=== PATIENT | female | born 1935 | race Caucasian/White ===

== ENCOUNTER 2022-05-02 10:24 | Inpatient (IN) | payer MEDICARE, OTHER ==
[2022-05-02 11:12] LABS: #Basophils 0.1 10x3/uL (0.0-0.2); #Eosinphils 0.1 10x3/uL (0.0-0.5); #Monocytes 1.3 10x3/uL (0.0-1.1); #Neutrophils 14.9 10x3/uL (1.5-8.4); %Basophils 0.3 % (0.0-2.0); %Eosinophils 0.3 % (0.0-6.0); %Monocytes 7.3 % (0.0-10.0); %Neutrophils 84.6 % (40.0-75.0); Hemoglobin 11.5 g/dL (12.0-15.5); Mean Corpuscular HGB CONC 33.7 g/dL (32.0-36.0); Mean Corpuscular Hemoglobin 31.5 pg (27.0-33.0); Mean Corpuscular Volume 93.4 fl (81.6-98.3); Mean Platelet Volume 10.7 fl (7.4-10.4); Platelet Count 169 10x3/uL (150-450); RBC Distribution Width 12.8 % (11.5-14.5); Red Blood Cell (RBC) Count 3.65 10x6/uL (3.90-5.03); White Blood Cell (WBC) Count 17.7 10x3/uL (3.5-10.5)
[2022-05-02 11:17] LABS: INR-International Normal Ratio 1.1; PTT 23.8 sec (22.0-33.0)
[2022-05-02 11:21] LABS: ALT (SGPT) 13 U/L (8-55); AST (SGOT) 34 U/L (5-34); Albumin 3.7 g/dL (3.4-4.8); Alkaline Phosphatase 56 U/L (40-110); Anion Gap 21 mmol/L (10-20); BUN (Urea Nitrogen) 44 mg/dL (9.8-20.1); Bilirubin, Total 0.9 mg/dL (0.2-1.2); CK (CPK) 647 U/L (29-168); Calc. Creatinine Clearance 0 mL/min (70-130); Calcium 9.5 mg/dL (7.8-10.44); Carbon Dioxide 19 mmol/L (23-31); Chloride 105 mmol/L (98-107); Estimated GFR 31; Globulin 2.9 g/dL (2.4-3.5); Glucose 372 mg/dL (83-110); Potassium 5.8 mmol/L (3.5-5.1); Protein, Total 6.6 g/dL (5.8-8.1); Sodium 139 mmol/L (136-145)
[2022-05-02 11:48] LABS: CKMB 31.5 ng/mL (0-6.6)
[2022-05-02] MEDS ORDERED: Aspirin Chewable 81 MG TAB ONE (12:25)
[2022-05-02] MEDS ORDERED: cefTRIAXone\\ROCEPHIN 1 GM VIAL ONE (12:25)
[2022-05-02] MEDS ORDERED: Calcium Gluc 4.6 MEQ/10 ML (100 MG/ML) ONE (13:01)
[2022-05-02 14:08] LABS: Potassium 4.9 mmol/L (3.5-5.1)
[2022-05-02 14:10] LABS: Lactic Acid 2.3 mmol/L (0.5-2.2)
[2022-05-02 14:26] LABS: Troponin I 2.041 ng/mL (< 0.028)
[2022-05-02 15:11] VITALS: BMI 23.0
[2022-05-02] MEDS ORDERED: Ondansetron PF 4 MG/2 ML Vial IVP PRN (15:15)
[2022-05-02] MEDS ORDERED: Acetaminophen 650 MG Suppository PR PRN (15:15)
[2022-05-02] MEDS ORDERED: Ondansetron ODT 4 MG TAB PO PRN (15:15)
[2022-05-02] MEDS ORDERED: Magnesium 2 GM/50 ML(in water) 2 GM in Premix Bag 1 BAG IVPB SCH (15:30)
[2022-05-02] MEDS ORDERED: Vancomycin DOSE BY LEVEL IVPB PRN (15:30)
[2022-05-02] MEDS ORDERED: Vancomycin HCl 1 GM in Sodium Chloride 0.9% 250 ML 250 ML IVPB SCH (15:45)
[2022-05-02 16:12] LABS: Magnesium 1.6 mg/dL (1.6-2.6)
[2022-05-02 16:34] LABS: Bilirubin Neg (Negative); Blood, Urine 150 (Negative); Clarity Cloudy (Clear); Glucose, Urine (Dipstick) >=1000 mg/dL (Negative); Ketone, Urine 15 mg/dL (Negative); Leukocyte 500 (Negative); Nitrite Negative (Negative); Protein, Urine (Dipstick) 100 mg/dl (Neg-Trace); Urobilinogen Normal mg/dL (Less than 2)
[2022-05-02] MEDS: Sodium Chloride 0.9% 1,000 ML IV SCH (16:53)
[2022-05-02 17:06] LABS: CAUTI Indications for Culture Alt mental st,lethar; RBC/HPF 0-3 HPF (0-3)
[2022-05-02 17:07] LABS: Bacteria/HPF 3+ HPF (None Seen); Urine Culture Reflex No No
[2022-05-02] MEDS ORDERED: Dextrose 5% in Water 1,000 ML IV PRN (17:28)
[2022-05-02] MEDS ORDERED: Dextrose 50% Abboject 50 ML SYRINGE SLOW IVP PRN (17:28)
[2022-05-02] MEDS ORDERED: HumaLOG 300 UNITS/3 ML VIAL SC PRN (17:28)
[2022-05-02 18:20] LABS: Troponin I 4.256 ng/mL (< 0.028)
[2022-05-02] MEDS ORDERED: Cefepime 1 GM in Sodium Chloride 0.9% 100 ML IVPB SCH (21:00)
[2022-05-02] MEDS: HumaLOG 300 UNITS/3 ML VIAL SC PRN (21:13)
[2022-05-03 05:31] LABS: #Eosinphils 0.1 10x3/uL (0.0-0.5); #Monocytes 0.9 10x3/uL (0.0-1.1); #Neutrophils 12.3 10x3/uL (1.5-8.4); %Basophils 0.2 % (0.0-2.0); %Eosinophils 0.9 % (0.0-6.0); %Lymphocytes 6.6 % (18.0-47.0); %Monocytes 6.4 % (0.0-10.0); %Neutrophils 85.5 % (40.0-75.0); Hemoglobin 9.5 g/dL (12.0-15.5); Mean Corpuscular HGB CONC 32.2 g/dL (32.0-36.0); Mean Corpuscular Hemoglobin 32.1 pg (27.0-33.0); Mean Corpuscular Volume 99.7 fl (81.6-98.3); Mean Platelet Volume 10.9 fl (7.4-10.4); Platelet Count 130 10x3/uL (150-450); RBC Distribution Width 13.5 % (11.5-14.5); Red Blood Cell (RBC) Count 2.96 10x6/uL (3.90-5.03); White Blood Cell (WBC) Count 14.4 10x3/uL (3.5-10.5)
[2022-05-03 05:48] LABS: Anion Gap 21 mmol/L (10-20); BUN (Urea Nitrogen) 44 mg/dL (9.8-20.1); CK (CPK) 753 U/L (29-168); Calc. Creatinine Clearance 22 mL/min (70-130); Calcium 9.3 mg/dL (7.8-10.44); Carbon Dioxide 12 mmol/L (23-31); Chloride 112 mmol/L (98-107); Estimated GFR 30; Glucose 296 mg/dL (83-110); Potassium 4.8 mmol/L (3.5-5.1); Sodium 140 mmol/L (136-145)
[2022-05-03] MEDS: HumaLOG 300 UNITS/3 ML VIAL SC PRN (07:36)
[2022-05-03] MEDS: Sodium Chloride 0.9% 1,000 ML IV SCH ×4 (07:38→22:04)
[2022-05-03] MEDS ORDERED: Aspirin Chewable 81 MG TAB PO SCH (09:00)
[2022-05-03] MEDS: Donepezil HCl 5 MG TAB PO SCH (09:22)
[2022-05-03] MEDS: Levothyroxine Sodium 100 MCG TAB PO SCH (09:22)
[2022-05-03] MEDS ORDERED: cefTRIAXone\\ROCEPHIN 1 GM in Sodium Chloride 0.9% 100 ML IVPB SCH (12:00)
[2022-05-03 16:48] LABS: Vancomycin, Random 10.7 ug/mL (See Comment)
[2022-05-03] MEDS: cefTRIAXone\\ROCEPHIN 1 GM in Sodium Chloride 0.9% 100 ML IVPB SCH (20:07)
[2022-05-04 04:53] LABS: #Basophils 0.1 10x3/uL (0.0-0.2); #Eosinphils 0.2 10x3/uL (0.0-0.5); #Monocytes 1.1 10x3/uL (0.0-1.1); #Neutrophils 9.1 10x3/uL (1.5-8.4); %Basophils 0.4 % (0.0-2.0); %Eosinophils 1.6 % (0.0-6.0); %Lymphocytes 13.3 % (18.0-47.0); %Monocytes 8.9 % (0.0-10.0); %Neutrophils 75.5 % (40.0-75.0); Hemoglobin 9.8 g/dL (12.0-15.5); Mean Corpuscular Hemoglobin 32.2 pg (27.0-33.0); Mean Corpuscular Volume 97.7 fl (81.6-98.3); Mean Platelet Volume 12.3 fl (7.4-10.4); Platelet Count 92 10x3/uL (150-450); RBC Distribution Width 13.9 % (11.5-14.5); Red Blood Cell (RBC) Count 3.04 10x6/uL (3.90-5.03)
[2022-05-04 05:01] LABS: Anion Gap 14 mmol/L (10-20); BUN (Urea Nitrogen) 43 mg/dL (9.8-20.1); Carbon Dioxide 17 mmol/L (23-31); Chloride 115 mmol/L (98-107); Potassium 4.3 mmol/L (3.5-5.1); Sodium 142 mmol/L (136-145)
[2022-05-04 05:02] LABS: CK (CPK) 376 U/L (29-168); Calc. Creatinine Clearance 26 mL/min (70-130); Calcium 8.7 mg/dL (7.8-10.44); Estimated GFR 36; Glucose 212 mg/dL (83-110)
[2022-05-04 05:31] LABS: Platelet Morphology Comment Appears Decreased
[2022-05-04 05:32] LABS: Ovalocytes SLIGHT = 2-5 cells (100X) (0-1/hpf)
[2022-05-04] MEDS: Acetaminophen 325 MG TAB PO PRN ×2 (08:50→20:09)
[2022-05-04] MEDS: Aripiprazole 10 MG TAB PO SCH (10:46)
[2022-05-04] MEDS: Donepezil HCl 5 MG TAB PO SCH (10:47)
[2022-05-04] MEDS: Levothyroxine Sodium 100 MCG TAB PO SCH (10:47)
[2022-05-04] MEDS: Sodium Chloride 0.9% 1,000 ML IV SCH ×2 (15:53→15:55)
[2022-05-04] MEDS: cefTRIAXone\\ROCEPHIN 1 GM in Sodium Chloride 0.9% 100 ML IVPB SCH (20:08)
[2022-05-04] MEDS: metroNIDAZOLE 500 MG in Premix Bag 1 BAG IVPB SCH (22:13)
[2022-05-04 23:41] LABS: ALT (SGPT) 20 U/L (8-55); AST (SGOT) 45 U/L (5-34); Alkaline Phosphatase 45 U/L (40-110); Bilirubin, Direct 0.2 mg/dL (0.1-0.3); Bilirubin, Total 0.4 mg/dL (0.2-1.2); Protein, Total 5.6 g/dL (5.8-8.1)
[2022-05-05] MEDS: Acetaminophen 325 MG TAB PO PRN ×4 (01:09→22:27)
[2022-05-05] MEDS: Sodium Chloride 0.9% 1,000 ML IV SCH ×2 (01:54→12:23)
[2022-05-05 04:06] LABS: #Basophils 0.1 10x3/uL (0.0-0.2); #Eosinphils 0.1 10x3/uL (0.0-0.5); #Monocytes 0.9 10x3/uL (0.0-1.1); #Neutrophils 7.5 10x3/uL (1.5-8.4); %Basophils 0.5 % (0.0-2.0); %Eosinophils 1.1 % (0.0-6.0); %Lymphocytes 15.1 % (18.0-47.0); %Monocytes 8.8 % (0.0-10.0); %Neutrophils 74.2 % (40.0-75.0); Hemoglobin 9.6 g/dL (12.0-15.5); Mean Corpuscular HGB CONC 32.1 g/dL (32.0-36.0); Mean Corpuscular Hemoglobin 31.5 pg (27.0-33.0); Mean Platelet Volume 11.7 fl (7.4-10.4); Platelet Count 94 10x3/uL (150-450); RBC Distribution Width 13.6 % (11.5-14.5); Red Blood Cell (RBC) Count 3.05 10x6/uL (3.90-5.03); White Blood Cell (WBC) Count 9.7 10x3/uL (3.5-10.5)
[2022-05-05 04:14] LABS: ALT (SGPT) 57 U/L (8-55); AST (SGOT) 87 U/L (5-34); Albumin 2.9 g/dL (3.4-4.8); Alkaline Phosphatase 57 U/L (40-110); Anion Gap 14 mmol/L (10-20); BUN (Urea Nitrogen) 48 mg/dL (9.8-20.1); Bilirubin, Total 0.5 mg/dL (0.2-1.2); Calc. Creatinine Clearance 25 mL/min (70-130); Calcium 8.3 mg/dL (7.8-10.44); Carbon Dioxide 15 mmol/L (23-31); Chloride 117 mmol/L (98-107); Estimated GFR 35; Globulin 2.5 g/dL (2.4-3.5); Glucose 235 mg/dL (83-110); Potassium 4.6 mmol/L (3.5-5.1); Protein, Total 5.4 g/dL (5.8-8.1); Sodium 141 mmol/L (136-145)
[2022-05-05] MEDS: metroNIDAZOLE 500 MG in Premix Bag 1 BAG IVPB SCH ×3 (05:10→22:22)
[2022-05-05] MEDS ORDERED: Furosemide 20 MG/2 ML VIAL SLOW IVP SCH (09:30)
[2022-05-05] MEDS: Aripiprazole 10 MG TAB PO SCH (09:42)
[2022-05-05] MEDS: Donepezil HCl 5 MG TAB PO SCH (09:43)
[2022-05-05] MEDS: Levothyroxine Sodium 100 MCG TAB PO SCH (09:43)
[2022-05-05 10:54] LABS: Actual Bicarbonate (HCO3v) 17 mEq/L (22-28); Base Excess -7.1 mEq/L (-2 - +2); Calcium, Ionized (venous) 1.14 mmol/L (1.16-1.32); Chloride (VBG) 113 mmol/L (98-106); Hemoglobin (Hb) 10.7 g/dL (11.7-16.1); Puncture Site Other Site; RapidComm Collect By CBL; Sodium 139.8 mmol/L (133-146); pH (venous) 7.36 (7.32-7.43)
[2022-05-05] MEDS ORDERED: Cefepime 1 GM in Sodium Chloride 0.9% 100 ML IVPB SCH (16:00)
[2022-05-05] MEDS ORDERED: Sodium Chloride 0.9% 100 ML ONE (17:12)
[2022-05-05] MEDS: Doxycycline 100 MG in Sodium Chloride 0.9% 100 ML IVPB SCH (23:08)
[2022-05-06 00:05] LABS: HBCM Index 0.07 S/CO (0-0.79); Hep A IgM AB Non-Reactive (NonReactive); Hep A IgM S/CO 0.13 S/CO (0-0.79); Hep B Surf Ag Non-Reactive S/CO (NonReactive); Hep C IgG Ab Non-Reactive (NonReactive); Hep C Index 0.09 S/CO (0-0.79); Hepatitis B Core IgM Abs Non-Reactive (NonReactive)
[2022-05-06 04:36] LABS: #Basophils 0.1 10x3/uL (0.0-0.2); #Eosinphils 0.2 10x3/uL (0.0-0.5); #Monocytes 0.8 10x3/uL (0.0-1.1); #Neutrophils 7.3 10x3/uL (1.5-8.4); %Basophils 0.6 % (0.0-2.0); %Eosinophils 1.7 % (0.0-6.0); %Lymphocytes 15.2 % (18.0-47.0); %Monocytes 7.9 % (0.0-10.0); %Neutrophils 74.2 % (40.0-75.0); Hemoglobin 9.6 g/dL (12.0-15.5); Mean Corpuscular Hemoglobin 31.9 pg (27.0-33.0); Mean Corpuscular Volume 99.7 fl (81.6-98.3); Mean Platelet Volume 11.3 fl (7.4-10.4); Platelet Count 118 10x3/uL (150-450); RBC Distribution Width 13.6 % (11.5-14.5); Red Blood Cell (RBC) Count 3.01 10x6/uL (3.90-5.03); White Blood Cell (WBC) Count 9.9 10x3/uL (3.5-10.5)
[2022-05-06 04:52] LABS: ALT (SGPT) 49 U/L (8-55); AST (SGOT) 44 U/L (5-34); Alkaline Phosphatase 58 U/L (40-110); Anion Gap 15 mmol/L (10-20); BUN (Urea Nitrogen) 46 mg/dL (9.8-20.1); Bilirubin, Total 0.6 mg/dL (0.2-1.2); Calc. Creatinine Clearance 26 mL/min (70-130); Calcium 8.7 mg/dL (7.8-10.44); Carbon Dioxide 14 mmol/L (23-31); Chloride 114 mmol/L (98-107); Estimated GFR 36; Glucose 175 mg/dL (83-110); Potassium 4.4 mmol/L (3.5-5.1); Sodium 139 mmol/L (136-145)
[2022-05-06] MEDS: metroNIDAZOLE 500 MG in Premix Bag 1 BAG IVPB SCH ×2 (05:24→14:08)
[2022-05-06] MEDS: Acetaminophen 325 MG TAB PO PRN (05:32)
[2022-05-06] MEDS: Levothyroxine Sodium 100 MCG TAB PO SCH (08:52)
[2022-05-06] MEDS: Aripiprazole 10 MG TAB PO SCH (08:52)
[2022-05-06] MEDS: Donepezil HCl 5 MG TAB PO SCH (08:52)
[2022-05-06] MEDS: Doxycycline 100 MG in Sodium Chloride 0.9% 100 ML IVPB SCH (08:53)
[2022-05-06] MEDS ORDERED: hydrALAZINE 25 MG TAB PO SCH (09:00)
[2022-05-06] MEDS ORDERED: HYDROcodone/Acetaminophen 5/325 mg Tablet PO SCH (13:00)
[2022-05-06 13:12] VITALS: BP 168/70; TEMP 97.2
[2022-05-06] MEDS ORDERED: Carvedilol 6.25 MG TAB PO SCH (16:30)
== END 2022-05-06 16:30 | disposition home or self-care (01) | DRG 564 ==
LOC: CSHERS 10:24 → INTOOBSV 14:03 → CSHTELE 14:03 → OBSVTOIN 15:27 → CSHICU 05-06 13:14
PROVIDERS: ADMIT Internal Medicine; ATTEND Internal Medicine
DX: T79.6XXA Traumatic ischemia of muscle, initial encounter (principal); I21.A1 Myocardial infarction type 2; E87.29 Other acidosis; N17.9 Acute kidney failure, unspecified; R65.10 Systemic inflammatory response syndrome (SIRS) of non-infectious origin without acute organ dysfunction; N39.0 Urinary tract infection, site not specified; J98.11 Atelectasis; Z20.822 Contact with and (suspected) exposure to COVID-19; G30.9 Alzheimer's disease, unspecified; F02.80 Dementia in other diseases classified elsewhere, unspecified severity, without behavioral disturbance, psychotic disturbance, mood disturbance, and anxiety; I48.0 Paroxysmal atrial fibrillation; E78.5 Hyperlipidemia, unspecified; E86.0 Dehydration; N18.9 Chronic kidney disease, unspecified; I12.9 Hypertensive chronic kidney disease with stage 1 through stage 4 chronic kidney disease, or unspecified chronic kidney disease; E11.22 Type 2 diabetes mellitus with diabetic chronic kidney disease; D72.829 Elevated white blood cell count, unspecified; E03.9 Hypothyroidism, unspecified; Z60.2 Problems related to living alone; F41.9 Anxiety disorder, unspecified; K81.9 Cholecystitis, unspecified; F32.A Depression, unspecified; Z88.8 Allergy status to other drugs, medicaments and biological substances; Z95.0 Presence of cardiac pacemaker; Z95.2 Presence of prosthetic heart valve; Z88.2 Allergy status to sulfonamides; Z79.890 Hormone replacement therapy; Z79.899 Other long term (current) drug therapy
CPT/HCPCS: 36415; 36416; 70450; 71045; 71250; 72125; 72170; 76705; 80048; 80053; 80074; 80076; 80202; 81001; 82550; 82553; 82805; 83605; 83735; 84145; 84484; 85025; 85610; 85730; 87040; 93005; 94760; 96365; 96366; 96368; J0610; J0692; J0696; J1815; J1940; J3370; J3475; J3490; J7050; U0003; U0005